=== PATIENT | male | born 1970 | race Caucasian/White ===

== ENCOUNTER 2020-02-15 08:11 | Inpatient (IN) ==
[2020-02-15] MEDS ORDERED: NS 1,000 ML IV ONE (08:24)
[2020-02-15] MEDS ORDERED: TYLENOL PO ONE (08:33)
--- NOTE | 2020-02-15 08:57 | Diag Imaging Result Doc PS360 ---
CHEST-1 VIEW - 02/15/2020 INDICATION: cough COMPARISON: 08/03/2012 FINDINGS: The lungs are normally expanded and clear. Heart size and mediastinal contours are normal. No pneumothorax or pleural effusion. IMPRESSION: Negative exam. Electronically signed by Matias Hou 02/15/2020 8:55 AM
[2020-02-15] MEDS ORDERED: ATIVAN IV ONE (09:09)
--- NOTE | 2020-02-15 09:19 | EKG Report ---
Test Performed on : 02/15/2020 08:31:56 AM Test Reason : flu symptoms, drug use Blood Pressure : / mmHG Vent. Rate : 087 BPM Atrial Rate : 087 BPM P-R Int : 120 ms QRS Dur : 102 ms QT Int : 404 ms P-R-T Axes : 040 052 070 degrees QTc Int : 486 ms Normal sinus rhythm. Prolonged QT Abnormal ECG Unconfirmed Result
[2020-02-15 09:33] LABS: BASO# 0.35 X1000 (0.0-0.2); BASO% 9.8 % (0.0-0.8); EOS# 0.35 X1000 (0.0-0.7); EOS% 9.8 % (0.0-10.0); HEMATOCRIT 41.8 % (42.0-52.0); IMM GRAN# 0.03 X1000 (0.0-0.04); IMM GRAN% 0.8 % (0.0-0.5); LYMPH# 1.38 X1000 (1.2-3.4); LYMPH% 38.7 % (20.5-51.1); MCH 29.4 PG (27-31); MCHC 35.9 g/dL (33-37); MCV 81.8 FL (81-99); MONO# 0.35 X1000 (0.11-0.59); MONO% 9.8 % (1.7-9.3); MPV 12.6 FL (7.4-10.4); NEUT# 1.11 X1000 (1.4-6.5); NEUT% 31.1 % (42.2-75.2); PLT 163 X1000 (130-400); RBC 5.11 XMIL (4.7-6.1); RDW 13.1 % (11.5-14.5); WBC 3.57 X1000 (4.8-10.8)
[2020-02-15 09:35] LABS: URINE SOURCE CLEAN CATCH
[2020-02-15 09:38] LABS: BILIRUBIN URINE MODERATE (NEGATIVE); BLOOD URINE MODERATE (NEGATIVE); COLOR YELLOW; GLUCOSE URINE >1000 mg/dL (NEGATIVE); KETONE URINE TRACE mg/dL (NEGATIVE); LEUKOCYTES URINE NEGATIVE (NEGATIVE); NITRITE URINE NEGATIVE (NEGATIVE); PH URINE 6.5; PROTEIN URINE 100 mg/dL (NEGATIVE); SP GRAVITY URINE 1.033; TURBIDITY URINE HAZY (CLEAR); UROBILINOGEN URINE 12 mg/dL (NORMAL)
[2020-02-15 09:39] LABS: UR EPITHELIAL CELLS <10 /HPF (<10); URINE BACTERIA NEGATIVE /HPF; URINE RBC <10 /HPF (<10); URINE WBC <10 /HPF (<10)
[2020-02-15 09:51] LABS: AGAP 15; ALB/GLOB RATIO 1.1; ALBUMIN 3.9 g/dL (3.5-5.0); ALKALINE PHOSPHATASE 669 U/L (32-122); BUN 9 mg/dL (8-22); CALCIUM 8.9 mg/dL (8.8-10.2); CHLORIDE 89 mmol/L (98-107); COSMO 265; CREATININE 0.9 mg/dL (0.7-1.2); ESTIMATED GFR > 60; GLUCOSE 266 mg/dL (70-104); POTASSIUM 3.6 mmol/L (3.5-5.1); SODIUM 128 mmol/L (136-145); TCO2 24 mmol/L (25-35); TOTAL BILIRUBIN 3.92 mg/dL (0.20-1.00); TOTAL PROTEIN 7.6 g/dL (6.3-8.3)
[2020-02-15 09:53] LABS: UR AMPHETAMINES QUAL NONE DETECTED (NONE DETECT); UR BARBITUATES QUAL NONE DETECTED (NONE DETECT); UR BENZODIAZEPIN QUAL NONE DETECTED (NONE DETECT); UR CANNABINOIDS QUAL NONE DETECTED (NONE DETECT); UR COCAINE QUAL NONE DETECTED (NONE DETECT); UR METHADONE QUAL NONE DETECTED (NONE DETECT); UR OPIATES QUAL NONE DETECTED (NONE DETECT); UR OXYCODONE QUAL NONE DETECTED (NONE DETECT); UR PCP QUAL NONE DETECTED (NONE DETECT)
[2020-02-15 10:01] LABS: GOT 5236 U/L (10-34); GPT 2726 U/L (10-44)
[2020-02-15 10:07] LABS: BANDS 6 % (0-1); BASO 11 % (0-1); LYMPHS 28 % (21-51); MONO 7 % (1-9); SEGS 39 % (42-75)
[2020-02-15 10:40] LABS: INR 1.02; PROTIME 13.5 Seconds (11.0-16.0)
--- NOTE | 2020-02-15 11:50 | Diag Imaging Result Doc PS360 ---
CT ABD/PELVIS W/IV CONT ONLY - 02/15/2020 INDICATION: elevated lft/ abdo pain COMPARISON: 07/25/2013 FINDINGS: The lung bases are clear and the heart size is normal. There is mild splenomegaly. The spleen measures 13.8 x 6.5 cm. The gallbladder is completely collapsed. The pancreas is atrophic. The liver, adrenals, and kidneys are normal. No bowel obstruction or inflammation. Normal appendix. Urinary bladder, prostate, and rectum are normal. Bones are intact and normally mineralized. IMPRESSION: Mild splenomegaly. No acute process. This exam was performed using automated exposure control, adjustment of mA or kV according to patient size, and/or use of iterative reconstruction technique Electronically signed by Matias Hou 02/15/2020 11:48 AM
--- NOTE | 2020-02-15 12:09 | PROVIDER DOCUMENTATION ---
This chart was entered by Candie Boyer Scribe, acting as scribe for Tono Toribio MD. HPI-General Adult - General Chief Complaint: Shortness of Breath Stated Complaint: PAIN ALL OVER/SOB Time Seen by Provider: 02/15/20 08:15 Source: patient Allergies/Adverse Reactions: Patient Allergies Allergy/AdvReac Type Severity Reaction Status Date / Time ketorolac tromethamine * Allergy Mild RASH Verified 02/15/20 08:49 [From Toradol] Home Medications: Home Medication List Medication Instructions Recorded Confirmed Last Taken Type Acetaminophen/Diphenhydramine 1 each PO Q4-6H PRN PRN #14 tablet 08/02/16 Unknown Rx [Percogesic Extra Str Caplet] Lidocaine 2% Viscous [Xylocaine 2% 15 ml MT Q3H PRN PRN #1 bottle 08/02/16 Unk nown Rx Viscous] - History of Present Illness -Gen Adult Nature of Presenting Problems: [id number] presents to ED cc SOB, mild cough and anxious for last 4 days. He does report he did Meth 1 wk ago and has had symptoms since. Pt denies F but does have fever upon exam. Location of Pain/Injury: reports: generalized Quality of Pain: reports: tightness Severity: reports: mild Onset/Duration: reports: 4 days ago Timing: reports: still present Context/Activities at Onset: reports: light activity Modifying Factors: improves with: nothing Associated Symptoms: reports: anxiety, cough, shortness of breath Similar Symptoms Previously?: No Recently seen or treated by another doctor?: No Review of Systems - Adult - REVIEW OF SYSTEMS - ADULT Constitutional: reports: see HPI. denies: chills, fever, fatique Eyes: reports: no symptoms reported Ears, Nose, Mouth & Throat: reports: no symptoms reported Cardiovascular: reports: no symptoms reported Respiratory: reports: see HPI, cough, shortness of breath Gastrointestinal: reports: no symptoms reported Genitourinary: reports: no symptoms reported Musculoskeletal: reports: no symptoms reported Integumentary: reports: no symptoms reported Neurological: reports: no symptoms reported Psychiatric: reports: see HPI, anxiety Endocrine: reports: no symptoms reported Hematologic/Lymphatic: reports: no symptoms reported Allergic/Immunologic: reports: no symptoms reported All Other Systems: Reviewed and Negative Past History - Adult - PAST MEDICAL HISTORY-ADULT Review of Records: reports: Nursing Assessment Review, Medications Reviewed, S ocial history reviewed & non-contributory. Major Childhood Illnesses: reports: denies history Cardiovascular: reports: HTN Respiratory: reports: denies history Gastrointestinal: reports: denies history Obstetrical/Gynecological: reports: denies history Genitourinary: reports: kidney stones Musculoskeletal: reports: orthopedic injury Neurological: reports: denies history Endocrine/Immune: reports: denies history Other Conditions: reports: denies history - PRIOR SURGERIES/PROCEDURES Surgical/Procedure History: reports: none - PRIOR HOSPITALIZATIONS Prior Hospitalizations: reports: none - IMMUNIZATION STATUS Childhood Immunizations: UTD Flu Vaccine: See Nurse Assessment - FAMILY HISTORY Family History: reviewed, not pertinent - SOCIAL HISTORY Smoking: denies Physical Exam-General - PHYSICAL EXAM-ADULT Initial Vital Signs Reviewed: Yes - CONSTITUTIONAL General Appearance: appears well, alert, no apparent distress, anxious. negative: combative - EYES Eyes: PERRL/EOMI, pink conjunctivae. negative: photophobia - HEAD, EARS, NOSE, MOUTH & THROAT HENMT: normocephalic/atraumatic, moist mucous membranes. negative: angioedema - NECK Neck: non-tender, full range of motion, supple, normal inspection. negative: C- spine tenderness - RESPIRATORY Respiratory: chest non-tender, lungs clear, normal breath sounds. negative: rales, stridor - CARDIOVASCULAR Cardiovascular: normal peripheral pulses, no edema, tachycardia. negative: bradycardia - GASTROINTESTINAL (ABDOMEN) Abdominal Exam: normal bowel sounds, non tender, soft. negative: rebound - MUSCULOSKELETAL Back Exam: normal inspection, no CVA tenderness, no vertebral tenderness Extremity: normal range of motion, non-tender, normal gait, normal inspection. negative: deformity - SKIN Integumentary: normal turgor, warm/dry, rash (mild rash to chest area). ne gative: jaundice - NEUROLOGIC Neurologic: starch and prosize mixer II-XII nml as tested - PSYCHIATRIC Psych/Mental Status: normal mood/affect, oriented x 3. negative: anxious Progress - PLAN OF CARE/RESULTS Progress/Plan/Lab Results: Vital Signs - 8 hr 02/15/20 08:18 02/15/20 09:33 02/15/20 10:14 Temperature 101.6 F H 99.6 F Pulse Rate 92 H 80 80 Respiratory Rate 22 25 H 25 H Blood Pressure 151/86 116/72 122/76 O2 Sat by Pulse Oximetry 98 100 97 02/15/20 08:35 Influenza Screen - Final Nasopharyngeal 02/15/20 08:35 Group A Strep Rapid Antigen - Final Throat Laboratory Results - last 24 hr 02/15/20 02/15/20 02/15/20 08:45 08:45 08:50 WBC 3.57 L RBC 5.11 Hgb 15.0 Hct 41.8 L MCV 81.8 MCH 29.4 MCHC 35.9 RDW Std Deviation 13.1 Plt Count 163 MPV 12.6 H Immature Gran % (Auto) 0.8 H Neut % (Auto) 31.1 L Lymph % (Auto) 38.7 [place] % (Auto) 9.8 H Eos % (Auto) 9.8 Baso % (Auto) 9.8 H Immature Gran # (Auto) 0.03 Neut # (Auto) 1.11 L Lymph # (Auto) 1.38 [place] # (Auto) 0.35 Eos # (Auto) 0.35 Baso # (Auto) 0.35 H Segmented Neutrophils 39 L Band Neutrophils 6 H Lymphocytes 28 Monocytes 7 Basophils 11 H Promyelocytes 2.0 Pathologist Review Atypical Lymphocytes 4.0 Unidentified Cells 3.0 PT INR PTT (Actin FS) Sodium 128 L Potassium 3.6 Chloride 89 L Carbon Dioxide 24 L Anion Gap 15 BUN 9 Creatinine 0.9 Estimated GFR/1.73 m2 > 60 BUN/Creatinine Ratio 10 Glucose 266 H POC Glucose Calculated Osmolality 265 Calcium 8.9 Total Bilirubin 3.92 H AST 5236 H ALT 2726 H Alkaline Phosphatase 669 H Creatine Kinase Troponin T High Sens Total Protein 7.6 Albumin 3.9 Globulin 3.7 Albumin/Globulin Ratio 1.1 Plasma Lactate 2.4 H Urine Source Urine Color Urine Turbidity Urine pH Ur Specific [place] Urine Protein Ur Glucose (Stick) Ur Ketones (Stick) Urine Blood Urine Nitrite Urine Bilirubin Urobilinogen Dipstick Urine Leukocytes Urine WBC (Auto) Urine RBC (Auto) U Epithel Cells (Auto) Urine Bacteria (Auto) Urine Opiates Screen Ur Oxycodone Screen Ur Methadone, Qual Ur Barbiturates Screen Ur Phencyclidine Scrn Ur Amphetamines Screen U Benzodiazepines Scrn Urine Cocaine Screen U Cannabinoids Screen 02/15/20 02/15/20 02/15/20 08:50 08:50 08:50 WBC RBC Hgb Hct MCV MCH MCHC RDW Std Deviation Plt Count MPV Immature Gran % (Auto) Neut % (Auto) Lymph % (Auto) [place] % (Auto) Eos % (Auto) Baso % (Auto) Immature Gran # (Auto) Neut # (Auto) Lymph # (Auto) [place] # (Auto) Eos # (Auto) Baso # (Auto) Segmented Neutrophils Band Neutrophils Lymphocytes Monocytes Basophils Promyelocytes Pathologist Review Atypical Lymphocytes Unidentified Cells PT INR PTT (Actin FS) Sodium Potassium Chloride Carbon Dioxide Anion Gap BUN Creatinine Estimated GFR/1.73 m2 BUN/Creatinine Ratio Glucose POC Glucose Calculated Osmolality Calcium Total Bilirubin AST ALT Alkaline Phosphatase Creatine Kinase 53 Troponin T High Sens Total Protein Albumin Globulin Albumin/Globulin Ratio Plasma Lactate Urine Source CLEAN CATCH Urine Color YELLOW Urine Turbidity HAZY Urine pH 6.5 Ur Specific [place] 1.033 Urine Protein 100 A Ur Glucose (Stick) >1000 A Ur Ketones (Stick) TRACE A Urine Blood MODERATE A Urine Nitrite NEGATIVE Urine Bilirubin MODERATE A Urobilinogen Dipstick 12 A Urine Leukocytes NEGATIVE Urine WBC (Auto) <10 Urine RBC (Auto) <10 U Epithel Cells (Auto) <10 Urine Bacteria (Auto) NEGATIVE Urine Opiates Screen NONE DETECTED Ur Oxycodone Screen NONE DETECTED Ur Methadone, Qual NONE DETECTED Ur Barbiturates Screen NONE DETECTED Ur Phencyclidine Scrn NONE DETECTED Ur Amphetamines Screen NONE DETECTED U Benzodiazepines Scrn NONE DETECTED Urine Cocaine Screen NONE DETECTED U Cannabinoids Screen NONE DETECTED 02/15/20 02/15/20 02/15/20 08:50 08:50 10:00 WBC RBC Hgb Hct MCV MCH MCHC RDW Std Deviation Plt Count MPV Immature Gran % (Auto) Neut % (Auto) Lymph % (Auto) [place] % (Auto) Eos % (Auto) Baso % (Auto) Immature Gran # (Auto) Neut # (Auto) Lymph # (Auto) [place] # (Auto) Eos # (Auto) Baso # (Auto) Segmented Neutrophils Band Neutrophils Lymphocytes Monocytes Basophils Promyelocytes Pathologist Review Atypical Lymphocytes Unidentified Cells PT 13.5 INR 1.02 PTT (Actin FS) 32.0 Sodium Potassium Chloride Carbon Dioxide Anion Gap BUN Creatinine Estimated GFR/1.73 m2 BUN/Creatinine Ratio Glucose POC Glucose 222 H D Calculated Osmolality Calcium Total Bilirubin AST ALT Alkaline Phosphatase Creatine Kinase Troponin T High Sens 9 Total Protein Albumin Globulin Albumin/Globulin Ratio Plasma Lactate Urine Source Urine Color Urine Turbidity Urine pH Ur Specific [place] Urine Protein Ur Glucose (Stick) Ur Ketones (Stick) Urine Blood Urine Nitrite Urine Bilirubin Urobilinogen Dipstick Urine Leukocytes Urine WBC (Auto) Urine RBC (Auto) U Epithel Cells (Auto) Urine Bacteria (Auto) Urine Opiates Screen Ur Oxycodone Screen Ur Methadone, Qual Ur Barbiturates Screen Ur Phencyclidine Scrn Ur Amphetamines Screen U Benzodiazepines Scrn Urine Cocaine Screen U Cannabinoids Screen Orders Category Date Time Status Cardiac Monitoring NOW Care 02/15/20 09:42 Active FSBS [Finger Stick Blood Sugar (ED)] DIRECTED Care 02/15/20 09:39 Active IV Insertion NOW Care 02/15/20 09:42 Completed NEWS Score 2-4:Order NEWS Lactate Series NOW Care 02/15/20 08:30 Active Notify Provider of NEWS Score NOW Care 02/15/20 09:42 Active Nursing- Obtain EKG ONCE Care 02/15/20 08:24 Active CHEST-1 VIEW [RAD] Stat Exams 02/15/20 08:[address] ABD/PELVIS W/IV CONT ONLY [CT] Stat Exams 02/15/20 10:12 Taken BLOOD CULTURE [BLDCUL] Stat Lab 02/15/20 10:07 Results CBC WITH ELECTRONIC DIFF [HEME] Stat Lab 02/15/20 08:45 Completed CK PROFILE [SP CHEM] Stat Lab 02/15/20 08:50 Completed COMPREHENSIVE METABOLIC PANEL [CHEM] Stat Lab 02/15/20 08:45 Completed DIRECT STREP Stat Lab 02/15/20 08:35 Completed INFLUENZA SCREEN A/B Stat Lab 02/15/20 08:35 Completed LACTATE, PLASMA [CHEM] Lab 02/15/20 11:45 Uncollected LACTATE, PLASMA [CHEM] Lab 02/15/20 14:45 Uncollected LACTATE, PLASMA [CHEM] Q3H Lab 02/15/20 08:50 Completed PROTIME WITH INR [COAG] Stat Lab 02/15/20 08:50 Completed PTT [COAG] Stat Lab 02/15/20 08:50 Completed TROPONIN T HIGH SENSITIVITY Stat Lab 02/15/20 08:50 Completed URINALYSIS W/POSS RFLX CULT [URINALYSIS] Stat Lab 02/15/20 08:50 Completed URINE DRUG SCREEN Stat Lab 02/15/20 08:50 Completed 0.9% Sodium Chloride Inj [Ns] 1,000 ml Med 02/15/20 08:24 Discontinued IV 999 mls/hr Acetaminophen [Tylenol] Med 02/15/20 08:33 Discontinued 1,000 mg PO NOW ONE Lorazepam [Ativan] Med 02/15/20 09:09 Discontinued 1 mg IV NOW ONE O2 Per Protocol Stat Oth 02/15/20 09:42 Active EKG [EKG] Stat Ther 02/15/20 08:24 Draft Result Diagrams: 02/15/20 08:45 02/15/20 08:45 - EKG 1 Time of EKG reading by physician:: 08:31 EKG Read and Signed by:: Tono Toribio EKG Interpretation (*Must complete 3 of following elements*): Abnormal (prolonge d QT) Rate: 87 Rhythm: NSR Cecilia: normal QRS: normal NE Interval: normal - XRAY 1 XRAY: Bilateral XRAY Study: Chest Impression: See EMR Report (IMPRESSION: Negative exam. Electronically signed by Matias Hou 02/15/2020 8:55 AM) - CT/MRI 1 CT Study: Abdomen, Pelvis Impression: See EMR Report (IMPRESSION: Mild splenomegaly. No acute process. This exam was performed using automated exposure control, adjustment of mA or kV according to patient size, and/or use of iterative reconstruction technique Electronically signed by Matias Hou 02/15/2020 11:48 AM) - CONSULTS/PCP/HOSPITALIST Notification #1 *Consult/PCP/Hospitalist*: Dian/[employer] Time Discussed: 11:54 Consult Disposition: Admit Departure - Departure Date of Disposition Decision: 02/15/20 Time of Disposition Decision: 11:54 DIAGNOSIS: Elevated LFTs, Hepatitis, Hyponatremia Disposition: ADMITTED INPATIENT Certified Medical Emergency: Emergent Condition: Fair Additional Instructions: ED Follow Up Instructions: You have been treated by a care provider in the Emergency Department. These instructions are being provided to you so you can have an understanding of how to care for yourself upon discharge. Upon discharge from the Emergency Department, you are responsible for making arrangements for follow-up care by a physician of your choice. Take all prescribed medications as directed. Return to the Emergency Department immediately for any new or worsening symptoms. You may call the Physician Referral phone number at [phone] to obtain a list of Physicians who are taking new patients. Referrals and Follow-Ups: None,PCP [Primary Care Provider] - - Critical Care Note This patient required my direct & personal management of CC.: No Attestation - Physician/ GIORGIO Attestation Patient care was provided by Advanced Practice Provider:: No The physician spent face to face time with patient:: Yes Advanced Practice Provider documentation review:: Supervising physician onsite and consulted in the evaluation and care of this patient. The physician did have a face to face encounter with the patient. This chart was documented by the indicated scribe, (Candie Boyer, [place]) and accurately reflects the services I performed and decisions made by me, Tono Toribio MD, as attested by the provider's signature.
--- NOTE | 2020-02-15 14:15 | HISTORY AND PHYSICAL ---
PRIMARY CARE PROVIDER: None. CHIEF COMPLAINT: Shortness of breath, dry cough, fever x4 days. HISTORY OF PRESENT ILLNESS: Mr. Kim is a 49-year-old gentleman who carries a past medical history of amphetamine abuse who shared a needle over the last couple months. He also reports hypertension and diabetes. However, over the last 4 years, he has not taken any prescription medications. He reports over the last 4 days he has had fever, chills, and a nonproductive dry cough. He also reports he has been around his mother, who is a cancer patient of Dr. Graham who was tested for COVID-19 on . He reports she has not gotten those results back yet and he has been around her as her primary care provider, but they do not live together. He also reports that he walks everywhere and is around different people, so he had unknown contacts. He came to the ED to be evaluated. He was found to have acute hepatitis, a fever of 101.6, splenomegaly on his abdomen and pelvis CT. We will admit him and test him for COVID-19, address his acute hepatitis symptomatically and await his hepatitis profile as well ruling him out for any endocarditis given his IV drug use history. PAST MEDICAL HISTORY: Diabetes, hypertension, diverticulosis, diabetes mellitus, arthritis, erectile dysfunction. PAST SURGICAL HISTORY: Extracorporeal shock wave lithotripsy. SOCIAL HISTORY: Amphetamine use IV. Denies any tobacco or alcohol use. HOME MEDICATIONS: Reports none for 4 years. ALLERGIES: Toradol. REVIEW OF SYSTEMS: Twelve-point review of systems completely negative except for those mentioned in HPI. FAMILY HISTORY: Mother with cancer. Followed by Dr. Graham. PHYSICAL EXAMINATION: VITAL SIGNS: Temperature is 101.6 degrees, heart rate 92, respirations 22, blood pressure 151/86, O2 is 98% on room air. GENERAL: Mr. Kim is a 49-year-old male who is sitting up in the bed in no acute distress. HEENT: Atraumatic, normocephalic. FIOR. NECK: Supple. Trachea midline. CV: S1, S2 appreciated. No murmurs, gallops, or rubs noted. RESPIRATORY: Lung sounds clear bilaterally. GI: Soft, nontender, nondistended. Positive bowel sounds 4 quadrants. EXTREMITIES: Lower extremities negative for edema. NEUROLOGIC: No focal deficits noted. DIAGNOSTIC DATA: Chest x-ray negative. Abdomen and pelvis CT, mild splenomegaly. No acute process. LABORATORY DATA: White count 3, hemoglobin 15, hematocrit 41, platelet count is 163,000. Sodium 128, potassium 3.6, BUN 9, creatinine 0.9, blood glucose was 266, T bilirubin 3.92, AST 5236, ALT 2726, alkaline phosphatase 669. Troponin 9. First plasma lactate 2.4; repeat 0.9. Urinalysis negative for bacteria, negative for nitrates, negative for leukocytes, 1000 glucose. Toxicology screen negative. ASSESSMENT AND PLAN: 1. Rule out Coronavirus Disease 2019 (COVID 19). The patient has been around his mother who was tested for COVID-19 by her oncologist, Dr. Graham. He has also had some unknown contacts. We will place him on the appropriate isolation precautions. 2. Acute hepatitis, possibly hepatitis A secondary to his IV amphetamine use. Will treat symptomatically. Await his hepatitis profile. His abdomen and pelvis CT showed splenomegaly. 3. Mild hyponatremia. Will continue with IV fluids. 4. Fever of unknown source, ruling out for Coronavirus Disease 2019 (COVID 19) as well as ruling out for endocarditis, given his IV drug use. I have no source of infection at this time. 5. Type 2 diabetes with hyperglycemia. We will place him on sliding scale with pattern blood sugars. Check hemoglobin A1c in the a.m. Diabetic diet. 6. Hypertension. History is he is not currently taking any medications. 7. 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 8. Further recommendations to follow physician evaluation, laboratory and diagnostic data. Dictated by GIACOMO Walker for Ahsan Baker MD cc: Ahsan Baker MD
[2020-02-15] MEDS ORDERED: D50W SYRINGE IV ONE (14:19)
[2020-02-15] MEDS ORDERED: ZOFRAN IV PRN (14:19)
[2020-02-15] MEDS: NS 1,000 ML IV SCH (14:59)
[2020-02-15] MEDS ORDERED: D50W SYRINGE IV PRN (16:13)
--- NOTE | 2020-02-15 17:13 | HISTORY AND PHYSICAL ---
ADDENDUM: The patient was seen and examined by me [id number]. All the laboratory, vital signs and images were reviewed. The patient presented due to some shortness of breath, dry cough and fever for the past 4 to 5 days. As per the patient, his mother has been tested for COVID-19. I called her doctor, and the result is not back yet, probably tomorrow or in 2 days. When I examined the patient, he was more relaxed and actually he was not complaining of shortness of breath. He does have elevated liver enzymes. His total bilirubin is 3.9, AST 5236, ALT 2726, alkaline phosphatase 669. His vital signs are stable. He is on room air, and his oxygen saturation has been 100% basically. Physical exam is benign. He is a little bit jaundiced, and surprisingly he is not too much tender to palpation at the level of the right upper quadrant. He is an IV drug user, and apparently the last time he used IV drugs, methamphetamine, was 1 week ago or more than 1 week ago. His urine toxicology is negative actually. He is hyponatremic. He seems to be slightly dehydrated. I will give him some IV fluids and monitor. We have requested also a COVID-19 for this patient due to his symptoms, fever, shortness of breath and cough. I hope it is negative. Likely this patient has acute hepatitis, likely hepatitis A. The hepatitis profile has been requested and is pending at this moment. Probably this patient will be here 2 or 3 days before discharge since the liver enzymes are really high. I agree with the rest of the nurse practitioner's assessment and plan. cc: Ahsan Baker MD
[2020-02-15] MEDS: HUMALOG SUBQ SCH ×2 (17:56→23:19)
[2020-02-16] MEDS: NS 1,000 ML IV SCH ×4 (03:01→22:48)
[2020-02-16] MEDS: HUMALOG SUBQ SCH ×4 (06:21→21:26)
[2020-02-16 06:38] LABS: BASO# 0.16 X1000 (0.0-0.2); BASO% 4.9 % (0.0-0.8); EOS# 0.03 X1000 (0.0-0.7); EOS% 0.9 % (0.0-10.0); HEMATOCRIT 39.1 % (42.0-52.0); HEMOGLOBIN 13.3 g/dL (14.0-18.0); LYMPH# 1.22 X1000 (1.2-3.4); LYMPH% 37.2 % (20.5-51.1); MCH 28.3 PG (27-31); MCV 83.2 FL (81-99); MONO# 0.46 X1000 (0.11-0.59); MPV 11.7 FL (7.4-10.4); NEUT# 1.41 X1000 (1.4-6.5); PLT 120 X1000 (130-400); RDW 13.2 % (11.5-14.5); WBC 3.28 X1000 (4.8-10.8)
[2020-02-16 07:14] LABS: AGAP 12; ALBUMIN 3.1 g/dL (3.5-5.0); ALKALINE PHOSPHATASE 515 U/L (32-122); BUN 11 mg/dL (8-22); CALCIUM 7.7 mg/dL (8.8-10.2); CHLORIDE 100 mmol/L (98-107); COSMO 267; CREATININE 0.8 mg/dL (0.7-1.2); ESTIMATED GFR > 60; GLUCOSE 119 mg/dL (70-104); MAGNESIUM 1.7 mg/dL (1.5-2.7); POTASSIUM 3.8 mmol/L (3.5-5.1); SODIUM 133 mmol/L (136-145); TCO2 21 mmol/L (25-35); TOTAL BILIRUBIN 4.15 mg/dL (0.20-1.00); TOTAL PROTEIN 6.2 g/dL (6.3-8.3)
[2020-02-16 07:33] LABS: GOT 3174 U/L (10-34); GPT 1986 U/L (10-44)
[2020-02-16 08:29] LABS: HEMOGLOBIN A1C 10.8 % (4.8-6.0)
--- NOTE | 2020-02-16 10:58 | ECHO REPORT ---
ORDER DATE: 02/15/2020 INDICATION: Rule out endocarditis, shortness of breath, cough. FINDINGS: This is a limited study. No Doppler evaluation was performed. 1. Right heart is poorly and incompletely visualized. Probable normal RV systolic function. 2. The left atrium is normal in size at 3.8 cm. 3. There is no mitral valve prolapse. 4. The aortic valve appears to open well. It is trileaflet. 5. The left ventricle is normal in size with an end-diastolic dimension of 4.9 cm. There is mild left ventricular hypertrophy, with a posterior and interventricular septal wall thickness of 1.0 and 1.3 cm respectively. Reduced LV systolic function, with an estimated EF of 30% to 35%, global hypokinesis. Again, this is a limited study. All endocardial borders are not well visualized. 6. There is no pericardial effusion seen. 7. Normal IVC size. 8. Limited valvular evaluation, but no obvious vegetations are seen. 9. The aorta appears dilated with a dimension of 4.4 cm at the sinuses. cc: Robert Valencia MD
[2020-02-16 11:29] LABS: HEPATITIS PROFILE ACUTE SEE COMMENTS
--- NOTE | 2020-02-16 14:24 | PROGRESS NOTE ---
DATE: 02/16/2020 SUBJECTIVE: The patient seems to be feeling better today. No more episodes of fever. His white blood cell count is still low at 3.2. His hemoglobin A1c is 10.8 which indicates that this patient has diabetes. His LFTs are trending down. On the other hand, we did an echocardiogram that also showed a reduced ejection fraction of 30% to 35% with global hypokinesis. He is asymptomatic at this moment. He is just a little bit anxious. I do not think this patient is taking any kind of treatment for diabetes at home; probably he needs to be on insulin. OBJECTIVE: Vital Signs: Temperature 97.8 degrees, pulse 85, respiratory rate 16, blood pressure 134/82, oxygen saturation 99 on room air. HEENT: Head normocephalic. No trauma. PERRLA. Icteric sclera. Neck: Supple. No JVD. No masses. Central trachea. Chest: Clear to auscultation. No wheezing. No rales. Abdomen: Soft, nontender, nondistended. No hepatosplenomegaly. Extremities: No edema. No clubbing. No cyanosis. Neurological: Patient is awake and alert. He is oriented x3. No focal deficits. LABORATORY: WBC 3.2, hemoglobin 13.3, hematocrit 39.1, platelets 120,000. Sodium 133, potassium 3.8, chloride 100, bicarbonate 21, BUN 11, creatinine 0.8, glucose 119, calcium 7.7. Total bilirubin 4.1, AST 3,174, ALT 1,886, alkaline phosphatase 515, albumin 3.1. ASSESSMENT AND PLAN: 1. Acute hepatitis, likely related to hepatitis A. Pending hepatitis profile at this moment. Likely this is secondary to his IV amphetamine use. I will treat him symptomatically. He is not having any symptoms at this moment. CT scan of the abdomen showed splenomegaly. We will do an echocardiogram in the future. 2. Mild hyponatremia. Getting better. 3. Fever and shortness of breath upon admission. We are ruling out Coronavirus Disease 2019 but he is asymptomatic today. 4. Fever of unknown source. Like I said, ruling Coronavirus Disease 2019. Probably this fever was related to his viral infection/hepatitis. 5. Type 2 diabetes with hyperglycemia. Hemoglobin A1c is 10.8. It looks like this patient has not been taking care of his diabetes at home. 6. IV drug use. Daily cessation education has been provided. 7. Hypertension. He is currently not taking any kind of blood pressure medication, but his blood pressure has been stable during this hospitalization. 8. It looks like this patient has systolic congestive heart failure with an ejection fraction of 30 to 35% with global hypokinesis. Once we have the Coronavirus Disease 2019 results, probably we will do a stress test and I will get Cardiology Department to see the patient. But at this point, I will go ahead and reduce the fluids to 75 mL/h instead of 125 mL/h. He does not have a history of CHF before, so likely this is a new onset. 9. Electrolyte imbalance, especially hyponatremia and hypochloremia. Seems to be better. cc: Ahsan Baker MD
[2020-02-16] MEDS: AMBIEN PO PRN (22:45)
[2020-02-17 06:33] LABS: AGAP 12; ALB/GLOB RATIO 0.8; ALBUMIN 2.8 g/dL (3.5-5.0); ALKALINE PHOSPHATASE 463 U/L (32-122); BUN 9 mg/dL (8-22); CALCIUM 7.6 mg/dL (8.8-10.2); CHLORIDE 102 mmol/L (98-107); COSMO 273; CREATININE 0.6 mg/dL (0.7-1.2); ESTIMATED GFR > 60; GLUCOSE 167 mg/dL (70-104); GOT 1675 U/L (10-34); GPT 1376 U/L (10-44); POTASSIUM 3.6 mmol/L (3.5-5.1); SODIUM 135 mmol/L (136-145); TCO2 21 mmol/L (25-35); TOTAL BILIRUBIN 4.68 mg/dL (0.20-1.00); TOTAL PROTEIN 6.2 g/dL (6.3-8.3)
[2020-02-17] MEDS: HUMALOG SUBQ SCH ×4 (06:48→21:56)
[2020-02-17] MEDS ORDERED: PNEUMOVAX 23 IM ONE (07:57)
[2020-02-17] MEDS ORDERED: LEXISCAN ONE (10:32)
--- NOTE | 2020-02-17 12:01 | Diag Imaging Result Doc PS360 ---
EXAM: US GB < RUQ (LIMITED) 02/17/2020 HISTORY: hepatitis TECHNIQUE: Right upper quadrant ultrasound COMMENT: The pancreas is normal in appearance. The visualized portions of the aorta and inferior vena cava are within normal limits. There is antegrade flow in the portal vein. The liver is otherwise unremarkable. The gallbladder is not distended. There are no apparent stones. The common bile duct measures 4 mm. The right kidney is without evidence of hydronephrosis or mass. There are no abnormal fluid collections. There is no sonographic Geiger sign. IMPRESSION: No evidence of acute abnormality. Electronically signed by Sanjay Orozco 02/17/2020 11:58 AM
--- NOTE | 2020-02-17 13:21 | Diag Imaging Result Document ---
PROCEDURE NAME: MYOCARDIAL PERF SCAN, STR/REST - 02/17/2020 INDICATION: CHF. PROCEDURES PERFORMED: 1. Lexiscan stress. 2. One-day stress/rest myocardial perfusion imaging (rest dose 12.7 millicuries, stress dose 35.9 mCi). FINDINGS: LEXISCAN STRESS RESULTS: 1. Baseline EKG shows sinus rhythm. 2. Lexiscan stress did not demonstrate any clear evidence of ischemic-related EKG changes or significant arrhythmias during the course of the study. PERFUSION IMAGING RESULTS: 1. No evidence of abnormal extracardiac uptake. 2. TID ratio is 1.01. 3. Perfusion imaging demonstrates a small size, mild to moderate-intensity fixed defect at the apex. This could be consistent with apical thinning artifact. Overall, there are no ischemic changes identified on this study. 4. Reduced ejection fraction of 43%. End-diastolic volume of 115, end systolic volume 16. Mild global hypokinesis. This could represent a nonischemic cardiomyopathy. cc: MD Ahsan Hernandes MD
--- NOTE | 2020-02-17 14:49 | PROGRESS NOTE ---
DATE: 02/17/2020 SUBJECTIVE: The patient is feeling better today. He just had a stress test done. His COVID-19 is negative. PHYSICAL EXAMINATION: Vital signs: Temperature 98.4 degrees, pulse 74, respiratory rate 18, blood pressure 140/74, oxygen saturation 98 on room air. HEENT: Head normocephalic, no trauma, PERRLA. Icteric sclerae. Neck: Supple. No JVD. No masses. Central trachea. Chest: Clear to auscultation. No wheezing. No rales. Abdomen: Soft, nontender, nondistended. No hepatosplenomegaly. Extremities: No edema, no clubbing, no cyanosis. Neurological: The patient is awake, alert. He is oriented. No focal deficits. LABORATORY: Sodium 135, potassium 3.6, chloride 102, bicarbonate 21, BUN 9, creatinine 0.6, glucose 167, calcium 7.6, bilirubin 4.6, AST 1675, ALT 1376, alkaline phosphatase 463, albumin 2.8. ASSESSMENT AND PLAN: 1. Acute hepatitis A. I will stop his IV fluids at this moment because of his heart failure, but his liver enzymes are getting better. Likely I will discharge this patient tomorrow. 2. Mild hyponatremia. Sodium level is 135 today, so we will monitor. 3. Fever and shortness of breath upon admission, resolved. Coronavirus Disease 2019 has been negative. 4. Type 2 diabetes with hyperglycemia. Hemoglobin A1c staying 10.8. He has been controlled with diabetic diet. As per the patient, he has been drinking a lot of sodas and not following a diet at home. 5. IV drug use. Daily cessation education has been provided. 6. Heart failure, systolic. Echocardiogram showed an ejection fraction of 30 to 35% with global hypokinesis. I did a stress test today that showed an ejection fraction of 43%. This has been discussed in length with this patient. He seems to understand, and he will follow up with one of our cardiologists. 7. Electrolyte imbalance, especially hyponatremia, hypochloremia. Better. Overall this patient is doing better. I will continue to monitor this patient for 1 more day, and hopefully tomorrow he can be discharged home if everything is okay. cc: Ahsan Baker MD
[2020-02-17] MEDS: COREG PO SCH (20:14)
[2020-02-17] MEDS: AMBIEN PO PRN (20:14)
[2020-02-18] MEDS: HUMALOG SUBQ SCH (06:11)
[2020-02-18 07:46] LABS: AGAP 11; ALBUMIN 3.2 g/dL (3.5-5.0); ALKALINE PHOSPHATASE 529 U/L (32-122); BUN 10 mg/dL (8-22); CALCIUM 8.3 mg/dL (8.8-10.2); CHLORIDE 97 mmol/L (98-107); COSMO 265; CREATININE 0.7 mg/dL (0.7-1.2); ESTIMATED GFR > 60; GLUCOSE 133 mg/dL (70-104); POTASSIUM 3.4 mmol/L (3.5-5.1); SODIUM 132 mmol/L (136-145); TCO2 24 mmol/L (25-35); TOTAL BILIRUBIN 7.47 mg/dL (0.20-1.00); TOTAL PROTEIN 6.5 g/dL (6.3-8.3)
[2020-02-18 07:54] VITALS: BP 138/87
[2020-02-18] MEDS ORDERED: KLOR-CON PO ONE (07:56)
[2020-02-18 07:59] LABS: GOT 1163 U/L (10-34); GPT 1207 U/L (10-44)
[2020-02-18] MEDS: COREG PO SCH (08:24)
[2020-02-18] MEDS ORDERED: COZAAR PO SCH (09:00)
--- NOTE | 2020-02-18 15:09 | DISCHARGE SUMMARY ---
ADMISSION DATE: 02/15/2020 DISCHARGE DATE: 02/18/2020 DISCHARGE DIAGNOSES: 1. Acute hepatitis likely due to IV drug use. 2. Mild hyponatremia. 3. Fever and shortness of breath upon admission, resolved. Coronavirus disease-19 has been ruled out. 4. Type 2 diabetes with hyperglycemia, uncontrolled. Hemoglobin A1c 10.8. 5. IV drug use especially methamphetamine. 6. Systolic heart failure with an echocardiogram that showed an ejection fraction of 30 to 35 percent and a stress test that showed an ejection fraction of 43%. 7. Tobacco abuse. PROCEDURES PERFORMED: 1. Chest x-ray dated 02/05/2020, impression: Negative exam. 2. Abdomen and pelvis CT scan dated 02/1402/15/2020, impression: Mild splenomegaly. 3. Echocardiogram dated 02/15/2020, impression: Ejection fraction 30 to 35 percent with global hypokinesis. No obvious vegetations are seen. 4. A stress test dated 02/17/2020, impression: Baseline EKG shows sinus rhythm. Lexiscan stress did not demonstrate any clear evidence of ischemic related EKG changes or significant arrhythmia during the course of the study. Reduced ejection fraction of 43% with mild global hypokinesis, this could represent non-ischemic cardiomyopathy. [id number] intensity fixed defect at the apex. This could be consistent with apical thinning artifact. Overall there are no ischemic changes identified on this study. 5. Abdomen ultrasound dated 02/17/2020, impression: No evidence of acute abnormality. HOSPITAL COURSE: A 49-year-old male with a past medical history of amphetamine abuse, who shared a needle over the last couple months. He also has a history of hypertension and diabetes. However, over the past 4 years, he has not been taking any prescribed medications. As per the patient, he has been having fever for 4 days. He was admitted on 02/15/2020 and that was associated with nonproductive dry cough and generalized weakness. He also reported that he has been around his mother who has cancer and she was tested for COVID 19 a few days prior to admission with no results back at the moment of admission. He also reported that he walks everywhere and is around different people so he had unknown contacts. He presented to the ED. He was found to have hepatitis and fever of 101.6, splenomegaly on the abdominal and pelvis CT scan. He was admitted. We tested him for COVID-19, which is negative. We put this patient on IV fluids since. He had a fever we asked for an echocardiogram which showed a low ejection fraction of 30- 35 percent, which is new for him. After getting the COVID-19 resolved, we asked for an a stress test that did not show any acute abnormality, but showed a low ejection fraction of 43%. I discussed briefly the case with Cardiology Department and they will follow this patient up as an outpatient. His hemoglobin A1c is elevated, but his blood sugar has been good during this hospitalization. As per the patient, he has not been following a diet at all, and actually he drinks a lot of soda at home. I told him that he needs to follow a diet and stop doing that, I do believe his diabetes can be controlled with diet. On the other hand, he is positive for hepatitis A and the liver enzymes are trending down and he is not having any kind of symptoms, I put this patient on beta blockers and ARBs and he will have a new appointment to see a occupational therapy asst, Dr. Robert Valencia on 03/11/2020 at 10:30 a.m. I had an extremely long conversation with this patient about IV drugs and smoking. As per the patient, he is not going to do it again. He states that he needs to take care of his mom who is a cancer patient. At the at the moment of discharge, this patient was tolerating p.o. Vital signs were stable. Laboratory was stable with elevated LFTs but trending down. PHYSICAL EXAMINATION: Vital Signs: Temperature 98.3 degrees, pulse 77, respiratory rate 20, blood pressure 138/87, oxygen saturation 100% on room air. HEENT: Head normocephalic. No trauma. PERRLA. Icteric sclerae. Neck is supple. No JVD. No masses. Central trachea. Chest: Clear to auscultation. No wheezing. No rales. Abdomen: Soft, nontender, nondistended. No hepatosplenomegaly. Extremities: No edema. No clubbing. No cyanosis. Neurological: The patient is awake, alert, he is oriented. No focal deficits. LABORATORY: Sodium 132, potassium 3.4, chloride 97, bicarbonate 24, BUN 10, creatinine 0.7 glucose 133, calcium 8.3, bilirubin 7.4, AST 1163, ALT 1207, alkaline phosphatase 529, and albumin 3.2. ASSESSMENT AND PLAN: The patient will be discharged home today. He was instructed and he understands that he understands that he cannot drink alcohol for at least 3 to 4 months. Also, he is aware that he cannot do drugs again. He will need to follow up with Dr. Valencia in March. Prescription has been given to the patient. Regarding his diabetes it looks like we can control this with diet. He can go back to metformin which he was taking a few months ago once the liver function is completely better. cc: Ahsan Baker MD
== END 2020-02-18 09:29 | disposition home or self-care (01) | DRG 442 ==
LOC: ED 08:11 → 3N 12:18 → 4N 13:04
PROVIDERS: ATTEND Internal Medicine